=== PATIENT | female | born 2005 | race Caucasian/White ===

== ENCOUNTER 2025-02-23 09:08 | Emergency (ER) | payer OTHER ==
[~2025-02-23] VITALS: Ht 162.5 cm; Wt 126.1 kg
[2025-02-23] MEDS ORDERED: SODIUM CHLORIDE 0.9% 1,000 ML IV ONE (10:50)
[2025-02-23] MEDS ORDERED: Meclizine Hydrochloride 25 MG TAB PO ONE (10:55)
[2025-02-23 11:03] LABS: BASO % 0.5 % (0.0-1.0); EOS # 0.1 10*3/uL (0.0-0.4); EOS % 0.7 % (1.0-4.0); HEMATOCRIT 39.5 % (37.0-47.0); MEAN CELL VOLUME 87.4 fl (81.0-99.0); MEAN CORPUSCULAR HGB 27.9 pg (27.0-31.0); MEAN CORPUSCULAR HGB CONC 31.9 g/dl (33.0-37.0); MEAN PLATELET VOLUME 9.4 fl (9.6-12.3); MONO # 0.6 10*3/uL (0.1-1.0); NEUT # 5.3 10*3/uL (2.3-7.9); NEUT % 66.5 % (47.0-73.0); PLATELET COUNT AUTOMATED 249 10*3/uL (130-400); RED BLOOD COUNT 4.52 10*6/uL (4.10-5.10); RED CELL DISTRI WIDTH 13.7 % (0-14.5)
[2025-02-23 11:27] LABS: ALKALINE PHOSPHATASE 101 U/L (46-116); BUN 10 mg/dl (9-23); CHLORIDE 104 mmol/L (98-107); POTASSIUM 3.8 mmol/L (3.4-5.1); SGPT/ALT 25 U/L (5-49); TOTAL PROTEIN 7.6 gm/dL (6.0-8.0)
[2025-02-23 12:31] LABS: BILIRUBIN Negative (Negative); BLOOD Negative (Negative); CLARITY Clear (Clear); COLOR Yellow (Yellow); GLUCOSE Negative (Negative); KETONE Negative (Negative); LEUKO ESTERASE Negative (Negative); NITRITE Negative (Negative); PH 6.5 (4.5-8.0); UROBILINOGEN 0.2 E.U./dl (0.0-1.0)
[2025-02-23 12:53] LABS: BACTERIA 3+; MUCOUS 2+; RBC 0-2 rbc/hpf (0-2); WBC 0-2 wbc/hpf (0-5)
[2025-02-23] MEDS ORDERED: CEPHALEXIN500 M1 PO (13:37)
[2025-02-23] MEDS ORDERED: Meclizine25 MG PO (13:37)
== END 2025-02-23 13:56 | disposition home or self-care (01) ==
LOC: ED 09:08
PROVIDERS: Nurse Practitioner
DX: N39.0 Urinary tract infection, site not specified (principal); R42 Dizziness and giddiness; R06.00 Dyspnea, unspecified

== ENCOUNTER 2025-03-12 19:36 | Emergency (ER) | payer OTHER ==
[~2025-03-12 19:36] MED LIST: CEPHALEXIN500 M1 PO; Meclizine25 MG PO
[2025-03-12 20:59] LABS: BASO % 0.6 % (0.0-1.0); EOS # 0.1 10*3/uL (0.0-0.4); EOS % 0.9 % (1.0-4.0); HEMATOCRIT 39.6 % (37.0-47.0); MEAN CELL VOLUME 88.2 fl (81.0-99.0); MEAN CORPUSCULAR HGB 27.6 pg (27.0-31.0); MEAN CORPUSCULAR HGB CONC 31.3 g/dl (33.0-37.0); MEAN PLATELET VOLUME 9.5 fl (9.6-12.3); MONO # 0.6 10*3/uL (0.1-1.0); MONO % 8.1 % (3.0-9.0); NEUT # 4.8 10*3/uL (2.3-7.9); NEUT % 69.3 % (47.0-73.0); PLATELET COUNT AUTOMATED 292 10*3/uL (130-400); RED BLOOD COUNT 4.49 10*6/uL (4.10-5.10); RED CELL DISTRI WIDTH 14.3 % (0-14.5); WHITE BLOOD COUNT 6.9 10*3/uL (4.8-10.8)
[2025-03-12 21:08] LABS: BILIRUBIN Negative (Negative); BLOOD 3+ (Negative); CLARITY Cloudy (Clear); COLOR Yellow (Yellow); GLUCOSE Negative (Negative); KETONE Negative (Negative); LEUKO ESTERASE 2+ (Negative); NITRITE Negative (Negative)
[2025-03-12 21:19] LABS: BACTERIA 2+; EPITHELIAL CELLS 31-40; MUCOUS 1+; RBC 21-30 rbc/hpf (0-2)
[2025-03-12 21:19] LABS: ALKALINE PHOSPHATASE 95 U/L (46-116); BUN 7 mg/dl (9-23); CHLORIDE 103 mmol/L (98-107); LIPASE 45 U/L (12-53); POTASSIUM 3.7 mmol/L (3.4-5.1); SGPT/ALT 21 U/L (5-49); TOTAL PROTEIN 7.6 gm/dL (6.0-8.0)
[2025-03-12] MEDS ORDERED: CIPRO500 MG PO (22:50)
[2025-03-12] MEDS ORDERED: Ciprofloxacin Hydrochloride 500 MG TAB PO ONE (22:55)
== END 2025-03-12 22:57 | disposition home or self-care (01) ==
LOC: ED 19:36
PROVIDERS: Emergency Medicine
DX: N39.0 Urinary tract infection, site not specified (principal); Z79.899 Other long term (current) drug therapy; Z88.0 Allergy status to penicillin

== ENCOUNTER 2025-07-17 22:55 | Emergency (ER) | payer OTHER ==
[~2025-07-17 22:55] MED LIST changes: +CIPRO500 MG PO
[2025-07-17] MEDS ORDERED: diazePAM 5 MG TAB PO ONE (23:15)
== END 2025-07-18 00:17 | disposition home or self-care (01) ==
LOC: ED 22:55
DX: F41.9 Anxiety disorder, unspecified (principal); R07.89 Other chest pain; Z88.0 Allergy status to penicillin; Z87.440 Personal history of urinary (tract) infections

== ENCOUNTER 2025-07-26 18:55 | Emergency (ER) | payer OTHER ==
[2025-07-26] MEDS ORDERED: SODIUM CHLORIDE 0.9% 1,000 ML IV ONE (20:25)
[2025-07-26 21:08] LABS: BASO # 0.1 10*3/uL (0.0-0.1); BASO % 0.5 % (0.0-1.0); EOS # 0.1 10*3/uL (0.0-0.4); EOS % 0.6 % (1.0-4.0); MEAN CELL VOLUME 89.0 fl (81.0-99.0); MEAN CORPUSCULAR HGB 27.9 pg (27.0-31.0); MEAN PLATELET VOLUME 9.3 fl (9.6-12.3); MONO # 0.9 10*3/uL (0.1-1.0); MONO % 7.2 % (3.0-9.0); NEUT # 9.5 10*3/uL (2.3-7.9); NEUT % 74.7 % (47.0-73.0); NUCLEATED RED BLOOD CELL 0.0 % (0.0-0.0); NUCLEATED RED BLOOD CELL 0.0 10*3/uL (0.0-0.0); PLATELET COUNT AUTOMATED 304 10*3/uL (130-400); RED CELL DISTRI WIDTH 14.0 % (0-14.5)
[2025-07-26 21:33] LABS: BUN 12 mg/dl (9-23)
[2025-07-26 22:59] LABS: BILIRUBIN Negative (Negative); BLOOD Negative (Negative); CLARITY Cloudy (Clear); COLOR Yellow (Yellow); KETONE Negative (Negative); LEUKO ESTERASE Negative (Negative); NITRITE Negative (Negative); PH 5.5 (4.5-8.0); SPECIFIC GRAVITY 1.025 (1.001-1.030); UROBILINOGEN 0.2 E.U./dl (0.0-1.0)
[2025-07-27 00:07] LABS: BACTERIA 2+; MUCOUS 2+
== END 2025-07-27 01:31 | disposition home or self-care (01) ==
LOC: ED 18:55
DX: E86.0 Dehydration (principal); R55 Syncope and collapse; F41.9 Anxiety disorder, unspecified; Z87.440 Personal history of urinary (tract) infections; Z88.0 Allergy status to penicillin